=== PATIENT | female | born 1950 | race Caucasian/White ===

== ENCOUNTER → 2018-02-02 | Outpatient (CLI) | payer MEDICARE | END | disposition home or self-care (01) | LOC: CFH 14:01 | PROVIDERS: ATTEND Internal Medicine Cardiovascular Disease | DX: I08.1 Rheumatic disorders of both mitral and tricuspid valves (principal); I45.19 Other right bundle-branch block | CPT/HCPCS: 93306 ==

== ENCOUNTER → 2018-07-26 | Outpatient (CLI) | payer MEDICARE | END | disposition home or self-care (01) | LOC: CFH 14:35 | PROVIDERS: ATTEND Internal Medicine Cardiovascular Disease | DX: I34.0 Nonrheumatic mitral (valve) insufficiency (principal); I35.8 Other nonrheumatic aortic valve disorders; I51.5 Myocardial degeneration | CPT/HCPCS: 93306 ==

== ENCOUNTER 2018-08-11 09:40 | Day surgery (SDC) | payer MEDICARE ==
[~2018-08-11] VITALS: Ht 172.7 cm; Wt 90.0 kg
[2018-08-11] MEDS ORDERED: ATOR20TA86 PO (10:22)
[2018-08-11] MEDS ORDERED: LEVO175T5 PO (10:25)
[2018-08-11] MEDS ORDERED: LEVO200T5 PO (10:25)
[2018-08-11 10:26] VITALS: BP 154/85
[2018-08-11] MEDS ORDERED: SODIUM CHLORIDE 0.9% 1,000 ML IV ONE (10:30)
[2018-08-11] MEDS ORDERED: PROPOFOL 10 MG/ML, 50ML ONE (11:27)
== END 2018-08-11 13:45 | disposition home or self-care (01) ==
LOC: CACL 09:40
PROVIDERS: ATTEND Internal Medicine Cardiovascular Disease
DX: I34.0 Nonrheumatic mitral (valve) insufficiency (principal); Z72.89 Other problems related to lifestyle; Z88.8 Allergy status to other drugs, medicaments and biological substances
CPT/HCPCS: 93312; 93321; 93325; J2704